=== PATIENT | male | born 1995 | race African-American/Black ===

== ENCOUNTER 2020-08-25 12:16 | Emergency (ER) | payer SELFPAY ==
[~2020-08-25] VITALS: Ht 195.6 cm; Wt 104.3 kg
[2020-08-25 12:16] VITALS: BP_SYST 124
--- NOTE | 2020-08-25 12:16 | NUR ---
BROUGHT IN TO COVID TEST, TRIAGED AND WILL ASSUME CARE
--- NOTE | 2020-08-25 12:25 | NUR ---
DR ABRAMS TO [facility] FOR EVALUATION.
--- NOTE | 2020-08-25 13:02 | NUR ---
ATTEMPTED TO GET A COVID TEST ON PT, PT NOW IS REFUSING TO GET TEST DONE. STATES HE IS SCARED TO GET SWAB DONE. ENCOURAGED PT TO GET IT DONE. EVEN OFFERED TO HAVE PT PERFORM TEST ON SELF. PT REFUSED. DR ABRAMS SPOKE WITH PT AND STILL REFUSED.
[2020-08-25 13:36] VITALS: BP_SYST 124
--- NOTE | 2020-08-25 13:38 | NUR ---
Patient given written and verbal discharge instructions and verbalizes understanding. ER MD discussed with patient the results and treatment provided. Patient in stable condition. ID arm band removed. No Rx given. Patient educated on pain management and to follow up with PMD. Pain Scale 0/10 . Opportunity for questions provided and answered. Medication side effect fact sheet provided.
== END 2020-08-25 13:38 | disposition home or self-care (01) ==
LOC: SED 12:16
DX: J11.1 Influenza due to unidentified influenza virus with other respiratory manifestations (principal)
CPT/HCPCS: 93005; 99283